=== PATIENT | male | born 1960 | race African-American/Black ===

== ENCOUNTER → 2024-06-19 | Outpatient (BNVA) | payer BC, SELFPAY | END | disposition home or self-care (01) | PROVIDERS: PCP Family Medicine; Referring Provider Family Medicine; Visit Provider Urology | DX: R97.20 Elevated prostate specific antigen [PSA] (principal); R35.1 Nocturia | CPT/HCPCS: 81003; 99212; G0463 ==

== ENCOUNTER → 2024-11-20 | Outpatient (CLI) | payer BC, SELFPAY ==
--- NOTE | 2024-11-20 11:07 | XR_ITS ---
Examination: Cystogram with KUB Fluoroscopy 11 spot fluoroscopic films of the bladder Exam date and time: November 20, 2024 1115 hours INDICATIONS: Diagnosis malignant neoplasm prostate post prostatectomy one week ago TECHNIQUE AND FINDINGS: Bladder filled with 150 cc Cystografin Trabeculation of the bladder. Bladder is intact on the spot compression films and overhead films Fluoroscopy 0.5 minute radiation dose 58.16 milligray 11 spot fluoroscopic films IMPRESSION: Intact urinary bladder
== END | disposition home or self-care (01) ==
PROVIDERS: PCP Family Medicine; Referring Provider Urology; Visit Provider Urology
DX: C61 Malignant neoplasm of prostate (principal)
CPT/HCPCS: 51600; 74430; Q9958

== ENCOUNTER → 2024-11-20 | Outpatient (BNVA) | payer BC, SELFPAY | END | disposition home or self-care (01) | PROVIDERS: PCP Family Medicine; Referring Provider Family Medicine; Visit Provider Urology | DX: C61 Malignant neoplasm of prostate (principal); E11.9 Type 2 diabetes mellitus without complications; I10 Essential (primary) hypertension; I25.10 Atherosclerotic heart disease of native coronary artery without angina pectoris; E66.9 Obesity, unspecified; Z68.38 Body mass index [BMI] 38.0-38.9, adult; I25.2 Old myocardial infarction; Z46.6 Encounter for fitting and adjustment of urinary device | CPT/HCPCS: 96372; 99212; J1580; G0463 ==

== ENCOUNTER 2024-12-16 13:06 | Outpatient (RCR) | payer BC, SELFPAY ==
--- NOTE | 2024-12-16 14:30 | CTCCONSULT_ITS ---
[facility] [address] [place], [place] [address] Consultation Note Date: 12/16/2024 MR#: [id number] Name: BARRY RIVERA : 1960 Dx: C61 Malignant neoplasm of prostate Attending physician. Tam Darden MD disappointing this appointment Referring physician. Aristeo Becker MD Reason for consultation. Patient with prostate CA group 5 Saleem score 9 referred for postop radiation therapy. History of Present Illness: Patient is a 64-year-old gentleman who underwent radical prostatectomy robotic at [facility] on 11/13/2024. Preop PSA was 13.9. Preop PET Pylarify at [facility] 11/04/2024 showed no evidence of mets. The final path was group 5 [place] score 5+4 = 9 51 to 60% of prostate involved extraprostatic extension around left and right seminal vesicles with extensive perineural invasion. 8 removed lymph nodes were negative for mets. pT3pN0. Patient had postop cystogram 11/20/2024 which showed intact urinary bladder. Past Medical History: Diabetes mellitus hypertension coronary artery disease obesity Social History: Review of Systems: Having frequency and urinary incontinence since surgery. Physical Exam: General: Well-appearing gentleman in no acute distress HEENT: Atraumatic normocephalic extraocular muscle intact no oral lesions no cervical or supraclavicular adenopathy CV: Chest clear to auscultation heart regular rate and rhythm ABD: Soft no organomegaly or tenderness EXT: No cyanosis clubbing or edema Assessment:1. pT3 pN0 CA of the prostate status post robotic radical prostatectomy [facility] 11/13/2024. High risk features include group 5 Saleem's extraprostatic extension into seminal vesicles and extensive perineural invasion. Preop PSA 13.9. Preop PET showed no evidence of mets. 2. Will initiate ADT Lupron 22.5 mg, followed in a few weeks by radiation therapy to the areas at risk following RTOG guidelines 6840 centigray to the tumor bed. Will first check labs including PSA scheduled for next month. 3. Side effects explained. Thank you very much for allowing me to evaluate and manage this patient. Cc: Aristeo Darden MD Electronically signed by: Vikas Cordova MD, DABR 12/16/2024 2:28 PM
== END 2025-01-11 23:59 | disposition home or self-care (01) ==
LOC: SCTC 13:06
PROVIDERS: PCP Family Medicine; Referring Provider Urology; Visit Provider Radiology Therapeutic Radiology
DX: C61 Malignant neoplasm of prostate (principal); Z90.79 Acquired absence of other genital organ(s)
CPT/HCPCS: 99213; G0463

== ENCOUNTER 2025-01-13 13:11 | Outpatient (RCR) | payer BC, SELFPAY ==
--- NOTE | 2025-01-13 14:07 | CTCFLWUP_ITS ---
[facility] [address] [place], [place] [address] FOLLOW-UP NOTE Date: 01/13/2025 MR#: [id number] Name: BARRY RIVERA : Dx: C61 Malignant neoplasm of prostate Identification. Patient with pT3bN0 CA of prostate status post robotic radical prostatectomy [facility] 11/20/2024. Group 5 Saleem's extraprostatic extension to seminal vesicles and extensive perineural invasion. Preop PET 11/04/2024 showed no evidence of mets. Preop PSA 13.9. Had labs drawn 01/11/2025 final results still pending. Elected to put him on Casodex 50 mg daily for 1 month prior to giving Lupron injections. Also spoke to him about starting radiation about 2 months after the Lupron injections initiated. With high risk he may eventually need to be on the newer antiandrogen's and this was briefly discussed. Side effects of radiation therapy discussed. Consent signed. Patient still having significant urinary symptoms and I have recommended that he be off work until I see him again in about 2 months. March 16, 2025. Electronically signed by: Vikas Cordova M.D. 01/13/2025 2:05 PM
== END 2025-02-11 23:59 | disposition home or self-care (01) ==
LOC: SCTC 13:11
PROVIDERS: PCP Family Medicine; Referring Provider Family Medicine; Visit Provider Radiology Therapeutic Radiology
DX: C61 Malignant neoplasm of prostate (principal); Z90.79 Acquired absence of other genital organ(s)
CPT/HCPCS: 99213; G0463

== ENCOUNTER → 2025-01-28 | Outpatient (CLI) | payer BC, SELFPAY ==
--- NOTE | 2025-01-28 09:15 | XR_ITS ---
Examination: Pelvic ultrasound, transabdominal, complete Technique: Transabdominal ultrasound of the pelvis performed using grayscale imaging Date and time of exam: January 28, 2025 0949 hours INDICATIONS: Uncontrolled hypertension beginning 2 months ago, prostatectomy November 13, 2024, prostate cancer diagnosis FINDINGS: No pelvic mass noted Bladder prevoid volume 3.1 x 3.7 x 3.2 cm no significant voiding No prostate tissue IMPRESSION: No pelvic mass No free fluid in the pelvis
--- NOTE | 2025-01-28 09:15 | XR_ITS ---
Examination: Testicular sonography complete TECHNIQUE: Grayscale sonographic images testes, assessment arterial inflow venous outflow Doppler spectral analysis carful analysis Date and time: January 28, 2025 0938 hours INDICATIONS: Palpable lump left testicle note is 2 2 weeks ago. FINDINGS: Right testis 4.4 cm epididymis 18 mm Arterial flow testicle. No testicular mass Left testis 4.2 cm epididymis 15 mm Arterial flow testicle. No testicular mass. Scrotal mass within the testicular sac 5.7 x 3.0 x 5.9 cm Mild bilateral hydroceles IMPRESSION: No testicular torsion or testicular mass Left scrotal mass, avascular, 5.7 x 3.0 x 5.9 cm, clinical correlation advised, recommend urology consultation
== END | disposition home or self-care (01) ==
LOC: CDIM 09:08
PROVIDERS: PCP Family Medicine; Referring Provider Student in an Organized Health Care Education/Training Program; Visit Provider Student in an Organized Health Care Education/Training Program
DX: N50.89 Other specified disorders of the male genital organs (principal)
CPT/HCPCS: 76856; 76870

== ENCOUNTER 2025-02-22 13:46 | Outpatient (RCR) | payer BC, SELFPAY | END 2025-03-14 23:59 | disposition home or self-care (01) | LOC: SCTC 13:46 | PROVIDERS: PCP Student in an Organized Health Care Education/Training Program; Referring Provider Student in an Organized Health Care Education/Training Program; Visit Provider Radiology Therapeutic Radiology | DX: Z51.11 Encounter for antineoplastic chemotherapy (principal); C61 Malignant neoplasm of prostate; Z90.79 Acquired absence of other genital organ(s) | CPT/HCPCS: 96402; J9217 ==

== ENCOUNTER 2025-04-13 11:03 | Outpatient (RCR) | payer BC, SELFPAY ==
--- NOTE | 2025-03-17 11:13 | CTCFLWUP_ITS ---
[facility] [address] [place], [place] [address] FOLLOW-UP NOTE Date: 03/17/2025 MR#: [id number] Name: BARRY RIVERA : 1960 Dx: C61 Malignant neoplasm of prostate Identification. Patient with [id number] CA of the prostate group 5 Saleem's 9 underwent radical robotic prostatectomy [facility] 11/13/2024. Preop PSA was 13.9. Preop PSMA PET 11/04/2024 showed no sign of regional or distant mets. Patient's PSA tyree significantly to 2.83 on 01/12/2025. Was placed on Casodex and received initial injection Lupron 1 month ago 02/22/2025. Still having moderate urinary frequency. A#1. [id number] CA of the prostate prostatectomy 5- preop PSMA PET no regional or distant mets. A#2. High risk features noted on postop path along with significant rise in PSA after short time following surgery A#3. Hormonal regulation has been initiated. Dr. Cheung to see patient soon. New labs ordered. . A#4 Spoke to patient about several weeks of radiation therapy to the prostate bed 6840 cgy as per RTOG guidelines with hormonal manipulation. A#5. I will delay radiation for another month due to persistent urinary symptoms. Side effects explained consent signed. Electronically signed by: Vikas Cordova M.D. 03/17/2025 11:11 AM
--- NOTE | 2025-03-17 12:51 | CTCTXPLNST_ITS ---
Radiation Oncology Treatment Planning Sheet Name: BARRY RIVERA MR#: [id number] : 1960 Dx: C61 Malignant neoplasm of prostate Date of Service: 03/17/2025 Account #: ?? Pt Treatment Intent: curative palliative other: Stage: Procedure CPT # Ordered Spec. Procedure 45465 Lechuga Complex (set-up) 18976 Pelvis 1 Lechuga Simple 74966 IMRT Plan 13307 1 MLC Devices VMAT 57534 3 Lechuga 3 D 95619 TRTMT dev Complex 37557 Vac-Audra 1 TRTMT dev simple 63518 Basic John 65058 6 Special Dosimetry 35824 Spec Physics 56956 Port Films 07759 SRS Cranial/1FX 74371 SBR 5 FX or Less /ex: 5 = 5 fx 94897 IMRT Simple 01910 6840 38 IMRT Complex 84630 IGRT 69518 38 Rad del Foruforever 6-10 62011 Rad del Foruforever 11 29376 Cont Med Physics 92516 7 Treatment Planning 44091 1 Weekly Evaluation 93250 6 Rad del com 20 mev 15852 Special Port Plan 32744 TRTMT dev inter 96111 Isodose Complex 63309 Isodose simple 76845 Resp Motion Mgmt Simulation 76014 Placement of Fiducial Markers 33052 Electronically Signed By: Vikas Cordova MD, JOANNAR 03/17/2025 12:49 PM
--- NOTE | 2025-03-17 12:52 | CTCTXPLN_ITS ---
[facility] [address] [place], [place] [address] Physician Clinical Treatment Planning Note Date of Service: 03/17/2025 Name: BARRY MIGUEL JoyaB.: 1960 The patient has agreed to proceed with Radiation therapy. Tests and supporting medical records were interpreted to assist in defining the tumor location and extent of disease. Further imaging will be necessary to contour and delineate the volume to which the XRT will be provided. A. Treatment Intent: Curative B. Modality: 10 MV C. Requested Technique: VMAT D. Treatment Site: Pelvis E. Critical structures to be contoured on plan: F. In order to accomplish this plan, I am ordering/Prescribing the followin. Simulations (s) will be performed to accomplish a reproducible treatment position, to determine optimal treatment portals/beam arrangements, to design beam modifying devices and verify treatment portals on patient prior to the commencement of Radiation Therapy. Pelvis 2. Devices; for immobilization and beam shaping: Vac-Audra 3. CT Guidance for placement of XRT de [place] Scan area: 4. Portal images Frequency: 5. Invivo transit dose measurement once per week on all VMAT patients. 6. Special Physics Consult Requested for: 7. Other requests: G. Dose Objectives: Curative Electronically signed by: Vikas Cordova M.D. 03/17/2025 12:50 PM
--- NOTE | 2025-04-01 11:57 | CTCFLWUP_ITS ---
Patient: BARRY RIVERA : 1960 Page 4 of 5 DATE OF SERVICE: 04/01/2025 NAME: BARRY RIVERA ACCOUNT: [id number] : 1960 AGE: 65 INTERVAL HISTORY: Patient is doing well. ONCOLOGY HISTORY: DIAGNOSIS: Malignant neoplasm of prostate [ICD10] C61; Malignant neoplasm of prostate [ICD10] C61 DATE OF DIAGNOSIS: 11/13/2024 STAGE/TNM: T3b N0 [id number] 3C TREATMENT HISTORY: Care?Plan Start?Date Cycle Day Intent HISTORY OF PRESENT ILLNESS: Radical prostatectomy robotic at [facility] on 11/13/2024. Preop PSA was 13.9. Preop PET Pylarify at [facility] 11/04/2024 showed no evidence of mets. The final path was group 5 Saleem score 5+4 = 9 51 to 60% of prostate involved extraprostatic extension around left and right seminal vesicles with extensive perineural invasion. 8 removed lymph nodes were negative for mets. pT3pN0. Patient had postop cystogram 11/20/2024 which showed intact urinary bladder. 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 atorvastatin - 20 mg 1 tab Every day before sleep 2. Casodex - 50 mg 1 tab Daily 3. clopidogrel - 75 mg 1 tab Daily 4. Eliquis - 5 mg 1 tab Daily 5. gabapentin - 300 mg 1 Capsule Twice a Day 6. Jardiance - 25 mg 1 tab Daily 7. lisinopril - 40 mg 1 tab Daily 8. metFORMIN - 1,000 mg 1 tab Twice a Day 9. metoprolol succinate - 100 mg 1 tab Daily 10. Ozempic - 1 mg/dose (4 mg/3 mL) Weekly 11. Xtandi - 80 mg 1 tab Daily Medications Last Reconciled by Gerri Hooper RN on 04/01/2025 ALLERGIES: No Known Drug Allergies REVIEW OF SYSTEMS: A complete 14-point review of systems was performed and is negative except as noted in interval history. PHYSICAL EXAMINATION: VITAL SIGNS: Temperature?96.8, B/P?138/85, Height?68?inches, Oxygen?Saturation?98% Weight?247?lbs (Change?since?03/17/25:?1?lbs) PAIN: 0 - No pain ECOG Performance Status: 0 - Asymptomatic and fully active GENERAL APPEARANCE: Appears well, in no apparent distress, appropriately interactive. HEENT: Normocephalic, no temporal wasting, normal conjunctiva, no scleral icterus, normal hearing, lips without lesions, neck normal range of motion. CARDIOVASCULAR: Not assessed. PULMONARY: Normal respiratory effort, no respiratory distress or use of accessory muscles, speaking in full sentences, no tachypnea. EXTREMITIES: No pedal edema or cyanosis. SKIN: Normal skin appearance. NEUROLOGIC: Alert and oriented x4. PSHYCHIATRIC: Appropriate affect, mood normal, behavior normal, intact thought and speech. LABORATORY DATA: I have personally reviewed and interpreted each of the patient?s relevant lab tests, abnormal findings are below: Date ASSESSMENT/PLAN: Early stage prostate cancer Cont Lupron and radiation Monitor psa Grade 5 and psa was 13.9 ORDERS: Order # Description [id number] Comprehensive Metabolic Panel - 12 + CBC with Auto Diff + PSA RETURN TO CLINIC: I reviewed the diagnosis, prognosis, and recommended treatment/procedure options with the patient (and/or their legal area representative), including the potential benefits, risks, side effects and alternative therapies. We also discussed the option of no treatment and the possibility of clinical trial participation, if applicable. All questions were addressed, and they demonstrated understanding. They provided informed consent to proceed with the proposed plan of care. BILLING AND COMPLIANCE: I reviewed external records from providers outside my specialty as summarized above. I spent a total of 50 minutes on this patient?s care on the day of their visit excluding time spent related to any billed procedures. This time includes time spent with the patient as well as time spent documenting in the medical record, reviewing patients records and tests, obtaining history, placing orders, communicating with other healthcare professionals, counseling the patient, family or caregiver, and/or care coordination for the diagnoses above. Electronically Signed by: Kennedy Cheung MD T: 11:55 AM CC: PCP: Anil Patten Referring: Anil Patten This document was completed utilizing speech recognition software. Grammatical errors, random word insertions, pronoun errors, and incomplete sentences are an occasional consequence of this system due to software limitations, ambient noise, and hardware issues. Any formal questions or concerns about the content, text or information contained within the body of this dictation should be directly addressed to the provider for clarification.
== END 2025-04-13 23:59 | disposition home or self-care (01) ==
LOC: SCTC 11:03
PROVIDERS: PCP Student in an Organized Health Care Education/Training Program; Referring Provider Student in an Organized Health Care Education/Training Program; Visit Provider Internal Medicine Hematology & Oncology
DX: Z51.0 Encounter for antineoplastic radiation therapy (principal); C61 Malignant neoplasm of prostate; Z90.79 Acquired absence of other genital organ(s)
CPT/HCPCS: 77014; 77290; 77300; 77301; 77334; 77336; 77338; 77385; 99212; 99213; G0463

== ENCOUNTER 2025-05-14 11:10 | Outpatient (RCR) | payer BC, SELFPAY | END 2025-05-14 23:59 | disposition home or self-care (01) | LOC: SCTC 11:10 | PROVIDERS: PCP Student in an Organized Health Care Education/Training Program; Referring Provider Student in an Organized Health Care Education/Training Program; Visit Provider Internal Medicine Hematology & Oncology | DX: Z51.0 Encounter for antineoplastic radiation therapy (principal); C61 Malignant neoplasm of prostate; M25.552 Pain in left hip; Z90.79 Acquired absence of other genital organ(s); Z79.818 Long term (current) use of other agents affecting estrogen receptors and estrogen levels | CPT/HCPCS: 77336; 77385 ==

== ENCOUNTER 2025-06-09 07:58 | Outpatient (RCR) | payer BC, SELFPAY ==
--- NOTE | 2025-05-17 12:05 | CTCTRTNOTE_ITS ---
[facility] [address], [place] [address] Weekly Management Date: 05/17/2025 ?? Name: BARRY RIVERA : 1960 A. Patient is currently at 5580 cGy. Some urinary incontinence. Unchanged. B. Resume radiation therapy. Completes XRT in about 2 weeks. Electronically signed by: Vikas Cordova M.D. 05/17/2025 12:03 PM
--- NOTE | 2025-06-12 22:41 | CTCFLWUP_ITS ---
Patient: BARRY RIVERA : 1960 Page 2 of 2 FOLLOW UP NOTE DATE OF SERVICE: 06/07/2025 NAME: BARRY RIVERA ACCOUNT: [id number] : 1960 AGE: 65 INTERVAL HISTORY: Patient is doing well. ONCOLOGY HISTORY:?[facility] Hx? DIAGNOSIS: Malignant neoplasm of prostate [ICD10] C61; Malignant neoplasm of prostate [ICD10] C61 DATE OF DIAGNOSIS: 11/13/2024 STAGE/TNM: T3b N0 [id number] 3C TREATMENT HISTORY: Care Plan Name Start Date Cycle Day Intent HISTORY OF PRESENT ILLNESS: Radical prostatectomy robotic at [facility] on 11/13/2024. Preop PSA was 13.9. Preop PET Pylarify at [facility] 11/04/2024 showed no evidence of mets. The final path was group 5 Saleem score 5+4 = 9 51 to 60% of prostate involved extraprostatic extension around left and right seminal vesicles with extensive perineural invasion. 8 removed lymph nodes were negative for mets. pT3pN0. Patient had postop cystogram 11/20/2024 which showed intact urinary bladder. 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 abiraterone - 500 mg 2 tab Daily 2. atorvastatin - 20 mg 1 tab Every day before sleep 3. calcium carbonate-vitamin D3 - 600 mg-10 mcg (400 unit) 2 tab Daily 4. clopidogrel - 75 mg 1 tab Daily 5. Eliquis - 5 mg 1 tab Daily 6. gabapentin - 300 mg 1 Capsule Twice a Day 7. Jardiance - 25 mg 1 tab Daily 8. lisinopril - 40 mg 1 tab Daily 9. metFORMIN - 1,000 mg 1 tab Twice a Day 10. metoprolol succinate - 100 mg 1 tab Daily 11. Ozempic - 1 mg/dose (4 mg/3 mL) Weekly 12. prednisone - 5 mg 1 tab Daily?Palabra Meds? Medications Last Reconciled by Melissa Smalls MD on 06/07/2025 ALLERGIES: No Known Drug Allergies REVIEW OF SYSTEMS: A complete 14-point review of systems was performed and is negative except as noted in interval history. PHYS[facility] EXAMINATION:[facility]? VITAL SIGNS: Temperature?97.5, B/P?143/83, Oxygen?Saturation?97% Weight?254?lbs (Change?since?05/27/25:?3.2?lbs) PAIN: 0 - No pain ECOG Performance Status: 0 - Asymptomatic and fully active GENERAL APPEARANCE: Appears well, in no apparent distress, appropriately interactive. HEENT: Normocephalic, no temporal wasting, normal conjunctiva, no scleral icterus, normal hearing, lips without lesions, neck normal range of motion. CARDIOVASCULAR: Not assessed. PULMONARY: Normal respiratory effort, no respiratory distress or use of accessory muscles, speaking in full sentences, no tachypnea. EXTREMITIES: No pedal edema or cyanosis. SKIN: Normal skin appearance. NEUROLOGIC: Alert and oriented x4. PSHYCHIATRIC: Appropriate affect, mood normal, behavior normal, intact thought and speech. LABORATORY DATA: I have personally reviewed and interpreted each of the patient?s relevant lab tests, abnormal findings are below: Date Time ASSESSMENT/PLAN:[facility] Assessment/Plan? Early stage prostate cancer Cont Lupron and radiation Monitor psa Grade 5 and psa was 13.9 , now psa isless than .006 Patient is responding well and tolerating medicine . Plan to cont for total 2 years Patient Is on zytiga and prednisone ORDERS: Order # Description [id number] Comprehensive Metabolic Panel - 12 + CBC with Auto Diff + PSA [id number] Follow Up 4 Week RETURN TO CLINIC: I reviewed the diagnosis, prognosis, and recommended treatment/procedure options with the patient (and/or their legal member services representative), including the potential benefits, risks, side effects and alternative therapies. We also discussed the option of no treatment and the possibility of clinical trial participation, if applicable. All questions were addressed, and they demonstrated understanding. They provided informed consent to proceed with the proposed plan of care. BILLING AND COMPLIANCE: I reviewed external records from providers outside my specialty as summarized above. I spent a total of 50 minutes on this patient?s care on the day of their visit excluding time spent related to any billed procedures. This time includes time spent with the patient as well as time spent documenting in the medical record, reviewing patients records and tests, obtaining history, placing orders, communicating with other healthcare professionals, counseling the patient, family or caregiver, and/or care coordination for the diagnoses above. Electronically Signed by: Kennedy Cheung MD T: 10:38 PM CC: PCP: No Primary/family, Physician Referring: Kennedy Cheung This document was completed utilizing speech recognition software. Grammatical errors, random word insertions, pronoun errors, and incomplete sentences are an occasional consequence of this system due to software limitations, ambient noise, and hardware issues. Any formal questions or concerns about the content, text or information contained within the body of this dictation should be directly addressed to the provider for clarification.
== END 2025-06-13 23:59 | disposition home or self-care (01) ==
LOC: SCTC 07:58
PROVIDERS: Referring Provider Internal Medicine Hematology & Oncology; Visit Provider Internal Medicine Hematology & Oncology
DX: Z51.0 Encounter for antineoplastic radiation therapy (principal); Z51.11 Encounter for antineoplastic chemotherapy; C61 Malignant neoplasm of prostate; Z90.79 Acquired absence of other genital organ(s)
CPT/HCPCS: 77336; 77385; 96402; 99212; J9217; G0463